=== PATIENT | male | born 1970 | race Caucasian/White ===

== ENCOUNTER 2019-02-07 15:58 | Emergency (ER) | payer BC ==
[~2019-02-07] VITALS: Ht 172.7 cm; Wt 65.8 kg
--- NOTE | 2019-02-08 07:20 | EKG ---
[facility] [address] [facility] [place], [place] [address] Signed Sinus rhythm with short [place] Otherwise normal ECG No previous ECGs available Confirmed by SHAN CALVILLO MD ([id number] on 02/08/2019 7:20:27 AM Electronically Signed By: SHAN CALVILLO MD 02/08/19 0720 PATIENT NAME: MIROSLAVA HUGHESN Electrocardiogram DATE OF : 74 PHYSICIAN: SHAN CALVILLO MD REPORT #: [id number] REPORT IS CONFIDENTIAL AND NOT TO BE RELEASED WITHOUT AUTHORIZATION
== END 2019-02-07 17:50 | disposition home or self-care (01) ==
LOC: ED 15:58
DX: R07.89 Other chest pain (principal)
CPT/HCPCS: 71045; 80053; 84484; 85025; 93005; 93010; 99285-25